=== PATIENT | male | born 1980 | race Caucasian/White ===

== ENCOUNTER 2016-12-09 13:56 | Inpatient (IN) | payer BC ==
[~2016-12-09] VITALS: Ht 167.6 cm; Wt 59.7 kg
[2016-12-09] VITALS (7 sets, daily range): BP systolic 83–107; BP diastolic 44–65
[2016-12-09] MEDS ORDERED: IV NORMAL SALINE 1,000ML 1,000 ML IV SCH ×2 (14:16→15:09)
[2016-12-09] MEDS ORDERED: ACETAMINOPHEN 500 MG TABLET PO ONE (14:17)
[2016-12-09] MEDS ORDERED: NOREPINEPHRINE BITARTRATE 8 MG in IV NORMAL SALINE 250ML 250 ML IV PRN ×3 (14:30→18:45)
[2016-12-09] MEDS ORDERED: 0.9 % SODIUM CHLORIDE 10 ML DISP.SYRIN. IV PRN (14:30)
[2016-12-09 14:48] LABS: BASO % 0 % (0-3); EOS % 0 % (0-3); HEMATOCRIT 39.2 % (39.0-53.0); HEMOGLOBIN 13.5 g/dL (13.0-17.5); LYMPH # 0.7 x10^3/uL (1.0-4.8); LYMPH % 2 % (24-48); MEAN CORPUSCULAR HEMOGLOBIN 34 pg (25-35); MEAN CORPUSCULAR HGB CONC 35 g/dL (31-37); MEAN CORPUSCULAR VOLUME 99 fL (79-100); MONO # 2.1 x10^3/uL (0.0-1.1); MONO % 7 % (0-9); NEUT # 25.9 x10^3uL (1.8-7.7); NEUT % 90 % (31-73); PLATELET COUNT 157 x10^3/uL (140-400); RED BLOOD COUNT 3.97 x10^6/uL (4.30-5.70); RED CELL DISTRIBUTION WIDTH 12.9 % (11.5-14.5); WHITE BLOOD COUNT 28.7 x10^3/uL (4.0-11.0)
[2016-12-09] MEDS ORDERED: NOREPINEPHRINE BITARTRATE 4 MG/4 ML VIAL. IV ONE (14:57)
[2016-12-09] MEDS ORDERED: IV NORMAL SALINE 250ML 0 ML ONE (14:57)
[2016-12-09] MEDS ORDERED: cefTRIAXone SODIUM 1 GM VIAL IV ONE (14:58)
[2016-12-09] MEDS ORDERED: IV NORMAL SALINE 50ML 50 ML ONE ×2 (14:58→16:01)
[2016-12-09 15:02] LABS: ALBUMIN 3.3 g/dL (3.4-5.0); ALBUMIN/GLOBULIN RATIO 0.9 (1.0-1.7); CALCIUM 8.3 mg/dL (8.5-10.1); CREATININE 1.3 mg/dL (0.7-1.3); GFR 62.8; POTASSIUM 3.5 mmol/L (3.5-5.1); TOTAL BILIRUBIN 0.5 mg/dL (0.2-1.0); TOTAL PROTEIN 6.9 g/dL (6.4-8.2)
--- NOTE | 2016-12-09 15:03 | RAD ---
Exam performed: 2 views chest. History: Cough and fever. Date of service: 12/09/16. Comparison: None available Findings: PA and lateral views chest findings: There is a round pleural-based parenchymal opacity in the right lower lobe. The left lung is clear. No pleural effusion or pneumothorax is seen. Impression: Focal parenchymal opacity in the right lower lobe probably represents round pneumonia. Short-term interval follow-up chest x-ray approximately 2 weeks after completion of appropriate therapy may be obtained to evaluate interval resolution. If this density persists, CT chest with contrast may be of additional benefit to rule out remote possibility of underlying mass.
[2016-12-09] MEDS ORDERED: PIP/TAZO PER PHARMACY MC PRN (15:15)
[2016-12-09] MEDS: NORMAL SALINE IV SCH ×8 (15:20→22:20)
--- NOTE | 2016-12-09 15:23 | PHYS DOC ---
General Chief Complaint: FEVER Stated Complaint: fever/aches Time Seen by MD: 14:12 Source: patient Exam Limitations: no limitations Problems: History of Present Illness Initial Comments Pt is 36/M to ED c/o fever and body aches. Pt states for the past two days he's had subjective fever/chills, body aches chills and sweats. No actual chest pain, pt has had some SEQUEIRA. Was seen at Dr Jefferson's office earlier today, but with abnormal VS was sent to ED for further eval. ED VS: 103 F, 142, 20, 86/42, 98% RA Timing/Duration: getting worse (2 days) Severity: severe Modifying Factors: worse with movement, improves with rest Associated Symptoms: cough, diaphoresis, fever/chills, headaches, loss of appetite, malaise, shortness of breath, weakness Allergies: Coded Allergies: hydrocodone (Verified Allergy, Mild, 12/09/16) Upset stomach, takes tylenol at home with no issue Past Medical History Medical History: asthma, seizure Surgical History: noncontributory Social History Smoker: cigarettes Alcohol: none Drugs: none Review of Systems Constitutional: see HPI EENTM: denies eye pain, denies ear pain, nose congestion, throat pain Respiratory: see HPI Cardiovascular: denies chest pain, denies palpitations, denies syncope Gastrointestinal: denies abdominal pain, denies diarrhea, denies nausea, denies vomiting Genitourinary: denies dysuria, denies frequency, denies hematuria Musculoskeletal: see HPI Psychiatric/Neurological: headache, denies numbness, denies paresthesia Physical Exam General Appearance: mild distress, thin Eyes: bilateral eye normal inspection, bilateral eye PERRL, bilateral eye EOMI Ear, Nose, Throat: hearing grossly normal, normal ENT inspection, normal pharynx Neck: non-tender, supple Respiratory: chest non-tender, other (coarse BS R base, no resp distress) Cardiovascular: regular rate, rhythm, no edema, tachycardia Gastrointestinal: normal bowel sounds, non tender, soft Back: no CVA tenderness, no vertebral tenderness Extremities: non-tender, normal inspection Neurologic/Psychiatric: telephonic rn II-XII nml as tested, no motor/sensory deficits, alert, normal mood/affect, oriented x 3 Skin: normal color, warm/dry Orders, Labs, Meds EKG: sinus tachycardia 128 bpm, LV strain no STEMI CXR PA/Lat: RLL "round" pneumonia, RAD uncertain if underlying cause 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 PHYSICIAN: NICOLE ARMAS DO REASON: RLL pneumonia vs mass PROCEDURE: CT ANGIOGRAPHY CHEST Indication pneumonia versus mass right lower lobe. Axial images were obtained. IV contrast was administered. 75 cc of Omnipaque 300 was administered. MIP images were generated and reviewed. Note is made of a plain film examination of the chest earlier in the day. Imaging through the upper abdomen is unremarkable. The thoracic aorta appears unremarkable. There is no significant hilar or mediastinal adenopathy. The study is negative for pulmonary embolus. Parenchymal opacity in the right lower lobe, apparent on plain films, is reproduced on CT. Vessels are noted running through the opacity and the right lower lobe findings are most compatible with pneumonia. There is no indication of a solid mass. Occasional blebs or bulla are noted in both upper lobes. An additional significant parenchymal finding is not seen. IMPRESSION: Negative study for pulmonary embolus. Findings in the right lower lobe compatible with pneumonia. Follow-up plain film imaging, after appropriate treatment, is advised. An unexpected finding in the chest, given the plain film findings, is not seen PQRS Compliance Statement: One or more of the following individualized dose reduction techniques were utilized for this examination: 1. Automated exposure control 2. Adjustment of the mA and/or kV according to patient size 3. Use of iterative reconstruction technique DICTATED AND SIGNED BY: BUSHRA YADAV MD DATE: 12/09/16 1611 CC: PCP,NO; NICOLE ARMAS DO ~ WBC 28.7, lactic acid 3.6, d-dimer 0.30, influenza/strep negative zosyn, rocephin, 2L NS IV, duoneb, tylenol given in ED 1700: Pt discussed with Dr Jefferson who accepts ICU admission for IV antibiotics, IV hydration and correction of acidosis. Pt is agreeable to inpatient treatment. IMPRESSIONS: Sepsis RLL Pneumonia Tobaccoism h/o asthma, seizure Departure Time of Disposition: 17:02 Disposition: ADMITTED INPATIENT Diagnosis: sepsis, pneumonia, tobaccoism, h/o asthma Condition: IMPROVED Additional Instructions: ICU admission Dr Jefferson is accepting. NICOLE ARMAS DO December 09, 2016 15:23
[2016-12-09] MEDS ORDERED: IOHEXOL 300 MG/ML 75 ML VIAL. IV ONE (15:45)
[2016-12-09] MEDS ORDERED: PIPERACILLIN/TAZOBACTAM 4.5 GM in IV NORMAL SALINE 50ML 50 ML IV ONE (15:45)
[2016-12-09] MEDS ORDERED: PIPERACILLIN/TAZOBACTAM 4.5 GM VIAL IV ONE (16:01)
[2016-12-09 16:13] LABS: INFLUENZA A PATIENT NEGATIVE (NEGATIVE); INFLUENZA B PATIENT NEGATIVE (NEGATIVE)
--- NOTE | 2016-12-09 16:23 | RAD ---
Indication pneumonia versus mass right lower lobe. Axial images were obtained. IV contrast was administered. 75 cc of Omnipaque 300 was administered. MIP images were generated and reviewed. Note is made of a plain film examination of the chest earlier in the day. Imaging through the upper abdomen is unremarkable. The thoracic aorta appears unremarkable. There is no significant hilar or mediastinal adenopathy. The study is negative for pulmonary embolus. Parenchymal opacity in the right lower lobe, apparent on plain films, is reproduced on CT. Vessels are noted running through the opacity and the right lower lobe findings are most compatible with pneumonia. There is no indication of a solid mass. Occasional blebs or bulla are noted in both upper lobes. An additional significant parenchymal finding is not seen. IMPRESSION: Negative study for pulmonary embolus. Findings in the right lower lobe compatible with pneumonia. Follow-up plain film imaging, after appropriate treatment, is advised. An unexpected finding in the chest, given the plain film findings, is not seen PQRS Compliance Statement: One or more of the following individualized dose reduction techniques were utilized for this examination: 1. Automated exposure control 2. Adjustment of the mA and/or kV according to patient size 3. Use of iterative reconstruction technique
[2016-12-09] MEDS ORDERED: IPRATRPIUM/ALBUTEROL 0.5/2.5MG 3 ML NEBU. NEB PRN (16:45)
[2016-12-09] MEDS ORDERED: IBUPROFEN 800 MG TABLET. PO ONE (16:49)
[2016-12-09] MEDS: IV NORMAL SALINE 1,000ML 1,000 ML IV SCH ×3 (17:03→20:53)
[2016-12-09] MEDS ORDERED: ACETAMINOPHEN 325 MG TABLET PO PRN (17:15)
[2016-12-09] MEDS ORDERED: ONDANSETRON PF 4 MG/2 ML VIAL. IV PRN (17:15)
[2016-12-09 17:31] LABS: AMPHETAMINE/METHAMPHETAMINE NEG (NEG); BARBITURATES NEG (NEG); BENZODIAZEPINES NEG (NEG); CANNABINOIDS POS (NEG); COCAINE NEG (NEG); METHADONE NEG (NEG); OPIATES NEG (NEG); PHENCYCLIDINE NEG (NEG)
[2016-12-09] MEDS ORDERED: methylPREDNISolone SOD SUCC PF 125 MG/2 ML VIAL. IV SCH (18:00)
[2016-12-09 18:14] LABS: BILIRUBIN,URINE NEG (NEG); CLARITY,URINE CLEAR; COLOR,URINE YELLOW; GLUCOSE,URINE NEG (NEG); UROBILINOGEN,URINE 1 mg/dL (0.2 mg/dL)
[2016-12-09 18:15] LABS: BACTERIA,URINE 0 /HPF (0-FEW); NITRITE,URINE NEG (NEG); WBC,URINE RARE /HPF (0-4)
--- NOTE | 2016-12-09 18:26 | NUR ---
Patient to room ICU 2. Chief complaint is general malaise, cough, and shortness of breath for a few days. Admitted with pneumonia and sepsis. Patient is alert and oriented, pleasant and cooperative. Denies pain at this time. Oriented to room, use of call light, and plan of care. Received verbalization of understanding, denies questions/needs. Will continue to monitor closely.
[2016-12-09] MEDS ORDERED: ALBU1.25 NEB (18:37)
[2016-12-09 19:22] LABS: % BANDS 18 % (0-9); % MONOS 4 % (0-10); % SEGS 78 % (35-66)
[2016-12-09 19:23] LABS: PLT ESTIMATE ADEQUATE (ADEQUATE)
[2016-12-09] MEDS: ENOXAPARIN 40 MG/0.4 ML DISP.SYRIN. SQ SCH (19:39)
[2016-12-09] MEDS: IPRATRPIUM/ALBUTEROL 0.5/2.5MG 3 ML NEBU. NEB SCH (21:07)
--- NOTE | 2016-12-09 21:14 | EKG ---
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
[2016-12-10] VITALS (24 sets, daily range): BP systolic 72–113; BP diastolic 44–67
[2016-12-10] MEDS: methylPREDNISolone SOD SUCC PF 40 MG/ML VIAL. IV SCH ×4 (00:35→18:20)
[2016-12-10] MEDS: IV NORMAL SALINE 1,000ML 1,000 ML IV SCH ×2 (01:38→05:33)
[2016-12-10] MEDS: IPRATRPIUM/ALBUTEROL 0.5/2.5MG 3 ML NEBU. NEB SCH ×4 (04:58→21:35)
[2016-12-10 05:47] LABS: BASO % 0 % (0-3); EOS % 0 % (0-3); HEMATOCRIT 38.3 % (39.0-53.0); HEMOGLOBIN 12.8 g/dL (13.0-17.5); LYMPH # 0.7 x10^3/uL (1.0-4.8); LYMPH % 3 % (24-48); MEAN CORPUSCULAR HEMOGLOBIN 34 pg (25-35); MEAN CORPUSCULAR HGB CONC 33 g/dL (31-37); MEAN CORPUSCULAR VOLUME 103 fL (79-100); MONO # 0.6 x10^3/uL (0.0-1.1); MONO % 3 % (0-9); NEUT # 22.6 x10^3uL (1.8-7.7); NEUT % 95 % (31-73); PLATELET COUNT 132 x10^3/uL (140-400); RED BLOOD COUNT 3.72 x10^6/uL (4.30-5.70); RED CELL DISTRIBUTION WIDTH 13.4 % (11.5-14.5); WHITE BLOOD COUNT 23.9 x10^3/uL (4.0-11.0)
[2016-12-10 05:52] LABS: CALCIUM 7.2 mg/dL (8.5-10.1); CREATININE 1.1 mg/dL (0.7-1.3); GFR 76.2; POTASSIUM 3.5 mmol/L (3.5-5.1)
[2016-12-10] MEDS: POTASSIUM CHLORIDE 30 MEQ in IV 1/2 NORMAL SALINE 1,000 ML IV SCH ×2 (11:10→18:18)
[2016-12-10] MEDS ORDERED: BENZOCAINE/MENTHOL LOZENGE 16'S BOX. PO PRN (11:15)
--- NOTE | 2016-12-10 13:22 | ACF ---
Admission Criteria Forms SEPSIS and OTHER FEBRILE ILLNESS, W/O FOCAL INFECTION Clinical Indications for Admission to Inpatient Care ( Place 'X' for any and all applicable criteria): Admission is indicated for ANY ONE of the following (1)(2)(3)(4): [ ] I. Bacteremia [ ]II. Suspected or identified specific infection requiring hospitalization (eg, meningitis, endocarditis) [ ]III. Hemodynamic instability [ ]IV. Altered mental status [X]V. Failure or unavailability of outpatient antimicrobial treatment [ ]. Hypoxemia [ ]VII. Seizures [ ]VIII. High-risk febrile neutropenia [ ]IX. Need for parenteral antibiotic in patient who is likely to abuse vascular access device (eg, injection drug user) [A](7) [ ]X. Temperature greater than 104.9 degrees F (40.5 degrees C) (oral) [ ]XI. Inpatient admission required rather than observation care because of ANY ONE of the following: [ ]1) Specific infection identified that is too severe for outpatient treatment or observation care trial [ ]2) Metabolic disorder (eg, hypoglycemia, hyperglycemia, metabolic acidosis) that is severe or persistent [ ]3) Temperature greater than 103.1 degrees F (39.5 degrees C) ( oral) that is not responsive to observation care treatment [ ]4) IV fluid to replace significant ongoing (eg, for over 24 hours) losses (> 3 L/m2 per day) [ ]5) Supplemental oxygen or respiratory treatments for over 24 hours that is performable only in acute inpatient setting [ ]6) Parenteral nutrition regimen need that must be implemented on inpatient basis [ ]7) Strict or protective (eg, laminar flow) isolation [ ]8) Other condition, treatment or monitoring requiring inpatient admission Extended stay beyond goal length of stay may be needed for(1)(3) [ ]a) Sepsis or septic shock(22) [ ]b) Positive blood cultures [ ]c) Insufficient oral intake [ ]d) High-risk febrile neutropenia(29)(30) [ ]e) Continued fever and clinical instability [ ]f) Clinically active comorbid illness (e.g,heart failure, renal failure , diabetes) The original [email or web address] content created by Otoniel [employer]ons has been revised. The portions of the content which have been revised are identified through the use of italic text or in bold, and Otoniel Lyons has neither reviewed nor approved the modified material. All other unmodified content is copyright [facility]. Please see references footnoted in the original [facility] edition 2016 Admission Criteria Met?: Yes ALBINO REED December 10, 2016 13:22
[2016-12-10] MEDS: ENOXAPARIN 40 MG/0.4 ML DISP.SYRIN. SQ SCH (20:19)
[2016-12-10] MEDS ORDERED: ZOLPIDEM 5 MG TABLET. PO SCH (21:00)
[2016-12-11] VITALS (16 sets, daily range): BP systolic 88–199; BP diastolic 41–70
[2016-12-11] MEDS: POTASSIUM CHLORIDE 30 MEQ in IV 1/2 NORMAL SALINE 1,000 ML IV SCH ×2 (02:08→08:50)
[2016-12-11] MEDS: methylPREDNISolone SOD SUCC PF 40 MG/ML VIAL. IV SCH ×3 (02:09→20:36)
[2016-12-11] MEDS: IPRATRPIUM/ALBUTEROL 0.5/2.5MG 3 ML NEBU. NEB SCH ×4 (05:58→20:09)
[2016-12-11 06:56] LABS: BASO % 0 % (0-3); EOS % 0 % (0-3); HEMATOCRIT 32.3 % (39.0-53.0); HEMOGLOBIN 11.1 g/dL (13.0-17.5); LYMPH # 0.7 x10^3/uL (1.0-4.8); LYMPH % 3 % (24-48); MEAN CORPUSCULAR HEMOGLOBIN 34 pg (25-35); MEAN CORPUSCULAR HGB CONC 34 g/dL (31-37); MEAN CORPUSCULAR VOLUME 101 fL (79-100); MONO # 1.1 x10^3/uL (0.0-1.1); MONO % 5 % (0-9); NEUT # 19.9 x10^3uL (1.8-7.7); NEUT % 92 % (31-73); PLATELET COUNT 124 x10^3/uL (140-400); RED BLOOD COUNT 3.21 x10^6/uL (4.30-5.70); RED CELL DISTRIBUTION WIDTH 13.1 % (11.5-14.5); WHITE BLOOD COUNT 21.7 x10^3/uL (4.0-11.0)
[2016-12-11 07:30] LABS: CALCIUM 8.2 mg/dL (8.5-10.1); CREATININE 0.6 mg/dL (0.7-1.3); GFR 153.3; POTASSIUM 3.9 mmol/L (3.5-5.1)
[2016-12-11] MEDS ORDERED: diphenhydrAMINE HCL 50 MG CAPSULE PO PRN (08:30)
[2016-12-11] MEDS ORDERED: PNEUMOC CONJ VACC 23-VALENT 0.5 ML VIAL. VAX IM ONE (09:00)
[2016-12-11 11:23] LABS: % BANDS 8 % (0-9); % LYMPHS 5 % (24-48); % METAS 2 % (0-0); % MONOS 1 % (0-10); % SEGS 84 % (35-66); PLATELET CLUMP PRESENT; PLT ESTIMATE DECREASED (ADEQUATE); POLYCHROMASIA SLIGHT; TOXIC GRANULATION SLIGHT
[2016-12-11] MEDS ORDERED: TEMAZEPAM 30 MG CAPSULE PO PRN (11:45)
--- NOTE | 2016-12-11 14:26 | RAD ---
EXAM: CHEST 2 VIEWS History: Shortness of breath Comparison: 12/09/2016 TECHNIQUE: PA and lateral chest radiographs FINDINGS: The cardiomediastinal silhouette is within normal limits. Interval minimal decrease in the airspace opacity identified in the right lung base likely known pneumonia or atelectasis. Impression: Minimal decrease in right lung base airspace opacity likely pneumonia or atelectasis. Follow-up examination is recommended to document complete resolution.
[2016-12-11] MEDS: ENOXAPARIN 40 MG/0.4 ML DISP.SYRIN. SQ SCH (20:36)
--- NOTE | 2016-12-12 01:34 | PN ---
DATE: 12/10/2016 HISTORY OF PRESENT ILLNESS: In with severe sepsis. The patient is still receiving IV fluids. Sodium is up to 148, white count is down from 28,000 to 23,000. He is feeling much better and this speaks more than just the labs themselves. PHYSICAL EXAMINATION: VITAL SIGNS: Blood pressure remains as low as in the 70s systolic, he has got about 110/70, respiratory rate 16, pulse is down from 140, down to 80. He is afebrile presently. GENERAL: The patient is alert and oriented. LUNGS: Decreased breath sounds on the right side. Crackles noted. CARDIOVASCULAR: Tachycardic. ABDOMEN: Soft, nontender, no rebound and no guarding, positive bowel sounds, no hepatosplenomegaly was noted. EXTREMITIES: No clubbing or cyanosis. NEUROLOGIC: The patient is otherwise alert and oriented. Doing extremely well in that regard there. We will go ahead and continue on IV antibiotic therapy. IMPRESSION: Severe sepsis, pneumonia, unspecified etiology; hypernatremia, hypotension, anemia. PLAN: Continue on IV antibiotic therapy, fluids and monitor carefully here in the ICU. VERA STAFFORD MD DR: JOSE/corazon JOB#: [id number] / [id number]
[2016-12-12] MEDS: POTASSIUM CHLORIDE 30 MEQ in IV 1/2 NORMAL SALINE 1,000 ML IV SCH ×2 (05:44→12:14)
[2016-12-12 05:48] VITALS: BP 104/60
[2016-12-12 06:18] LABS: BASO % 0 % (0-3); CALCIUM 8.5 mg/dL (8.5-10.1); CREATININE 0.7 mg/dL (0.7-1.3); EOS % 0 % (0-3); GFR 128.3; HEMATOCRIT 34.5 % (39.0-53.0); HEMOGLOBIN 11.7 g/dL (13.0-17.5); LYMPH # 0.9 x10^3/uL (1.0-4.8); LYMPH % 7 % (24-48); MEAN CORPUSCULAR HEMOGLOBIN 34 pg (25-35); MEAN CORPUSCULAR HGB CONC 34 g/dL (31-37); MEAN CORPUSCULAR VOLUME 100 fL (79-100); MONO # 0.7 x10^3/uL (0.0-1.1); MONO % 5 % (0-9); NEUT # 11.8 x10^3uL (1.8-7.7); NEUT % 88 % (31-73); PLATELET COUNT 157 x10^3/uL (140-400); RED BLOOD COUNT 3.45 x10^6/uL (4.30-5.70); RED CELL DISTRIBUTION WIDTH 13.6 % (11.5-14.5); WHITE BLOOD COUNT 13.4 x10^3/uL (4.0-11.0)
[2016-12-12] MEDS: methylPREDNISolone SOD SUCC PF 40 MG/ML VIAL. IV SCH (07:46)
[2016-12-12 08:00] VITALS: BP 112/63
[2016-12-12] MEDS: IPRATRPIUM/ALBUTEROL 0.5/2.5MG 3 ML NEBU. NEB SCH ×2 (08:00→11:25)
[2016-12-12] MEDS ORDERED: LEVO500T59 PO (11:05)
[2016-12-12] MEDS ORDERED: IPRA3AMP NEB (11:05)
[2016-12-12] MEDS ORDERED: CEFP200T PO (11:05)
[2016-12-12 11:30] VITALS: BP 127/66
--- NOTE | 2016-12-12 15:42 | NUR ---
PT dc to home, pt verbalize understanding of dc instructions and medications. rx called into [facility] pharmacy. They will not have vantin for 2 days ok with MD. PT left amb with family. Mariebl MIRAMONTES
--- NOTE | 2016-12-12 16:58 | CARD ---
APPROVED REPORT EXAM: Two-dimensional and M-mode echocardiogram with Doppler and color Doppler. Other Information Quality : Average Rhythm : NSR INDICATION hypotension, sepsis 2D DIMENSIONS Left Atrium(2D)2.9 (1.6-4.0cm)IVSd0.9 (0.7-1.1cm) Aortic Root(2D)2.3 (2.0-3.7cm)LVDd5.6 (3.9-5.9cm) LVOT Diameter1.8 (1.8-2.4cm)PWd0.9 (0.7-1.1cm) LVDs3.7 (2.5-4.0cm)FS (%) 34.6 % SV97.3 mlLVEF(%)63.1 (>50%) Aortic Valve AoV Peak Melvin.121.5cm/sAoV VTI25.8cm AO Peak GR.5.9mmHgLVOT Peak Melvin.109.2cm/s LVOT VTI 23.77cmAO Mean GR.4mmHg ELIAS (VMAX)2.15yi0DHW (VTI)2.44cm2 Mitral Valve MV E Xrvrmnsi451.3cm/sMV DECEL XRKG847zs MV A Qzpkbvfy99.1cm/sMV KSM54ze E/A Ratio2.2MV A Fvvynhdi802st MVA (PHT)5.22cm2 Tricuspid Valve TR P. Yjwyhuzo346oh/sRAP XQMUKNCM1bhYd TR Peak Gr.17tbYaEVHB19osPz Pulmonary Vein S1 Vgunpkjq97.8cm/sD2 Bzkvgyqk03.9cm/s LEFT VENTRICLE The left ventricle is normal size. There is normal left ventricular wall thickness. Left ventricle sy stolic function is normal. The Ejection Fraction is 60-65%. There is normal LV segmental wall motion. The left ventricular diastolic function and filling is normal for age. There is no ventricular septa l defect visualized. RIGHT VENTRICLE The right ventricle is normal size. The right ventricular systolic function is normal. ATRIA The left atrium size is normal. The right atrium size is normal. The interatrial septum is intact wit h no evidence for an atrial septal defect or patent foramen ovale as noted on 2-D or Doppler imaging. AORTIC VALVE The aortic valve is normal in structure and function. The aortic valve is normal in structure and fun ction. The aortic valve is normal in structure and function. The aortic valve is trileaflet. Doppler and Color Flow revealed no significant aortic regurgitation. There is no significant aortic valvular stenosis. MITRAL VALVE The mitral valve leaflets are thickened. There is no mitral valve stenosis. Doppler and Color Flow re vealed no mitral valve regurgitation noted. TRICUSPID VALVE The tricuspid valve is normal in structure and function. Doppler and Color Flow revealed trace tricus pid regurgitation. The PA pressure was estimated at 16 mmHg. There is no tricuspid valve stenosis. PULMONIC VALVE Doppler and Color Flow revealed no pulmonic valvular regurgitation. There is no pulmonic valvular rachell nosis. GREAT VESSELS The aortic root is normal in size. The IVC is normal in size and collapses <50% with inspiration. PERICARDIAL EFFUSION There is no evidence of significant pericardial effusion. Critical Notification Critical Value: No <Conclusion> Left ventricle systolic function is normal. The Ejection Fraction is 60-65%. There is normal LV segmental wall motion. The IVC is normal in size and collapses <50% with inspiration.
== END 2016-12-12 15:45 | disposition home or self-care (01) | DRG 871 ==
LOC: ER 13:56 → ICU 17:07
PROVIDERS: ADMIT Family Medicine; ATTEND Family Medicine
DX: A41.9 Sepsis, unspecified organism (principal); J18.9 Pneumonia, unspecified organism; E87.0 Hyperosmolality and hypernatremia; D64.9 Anemia, unspecified; F17.210 Nicotine dependence, cigarettes, uncomplicated; J45.909 Unspecified asthma, uncomplicated; R65.20 Severe sepsis without septic shock; R56.9 Unspecified convulsions; Z88.5 Allergy status to narcotic agent
CPT/HCPCS: 36415; 71020; 71275; 80048; 80053; 81001; 82550; 83605; 84484; 85007; 85027; 85379; 86738; 87040; 87070; 87205; 87449; 87641; 87804; 87880; 90732; 93005; 93306; 94640; 96361; 96365; 96368; G0480; G0481; J0696; J1650; J1956; J2543; J2920; J2930; J7030; J7620; Q9967; 99285-25

== ENCOUNTER 2017-10-03 18:23 | Emergency (ER) | payer BC, OTHER ==
[~2017-10-03] VITALS: Ht 175.3 cm; Wt 65.8 kg
[~2017-10-03 18:23] MED LIST: ALBU1.25 NEB; CEFP200T PO; IPRA3AMP NEB; LEVO500T59 PO
--- NOTE | 2017-10-03 18:31 | ED.ADGEN ---
Past History Past Medical History: Asthma, Seizure Past Surgical History: Tonsillectomy Alcohol Use: None Drug Use: None Adult General Chief Complaint Chief Complaint ".. I got this rash.. I think it is a new body wash..." HPI HPI Patient is a 30 year old male who presents with above hx and complaints of a rash. Pt. has what appears to have a contact dermatitis over his body. Increased erythema at axillary and groin. Pt. denies any history of immunosuppression, travel, ill contacts. Has recently used a new body wash. Patient noticed shortly after using he developed a rash. Review of Systems Review of Systems Constitutional: Denies fever or chills [] Eyes: Denies change in visual acuity, redness, or eye pain [] HENT: Denies nasal congestion or sore throat [] Respiratory: Denies cough or shortness of breath [] Cardiovascular: No additional information not addressed in HPI [] GI: Denies abdominal pain, nausea, vomiting, bloody stools or diarrhea [] : Denies dysuria or hematuria [] Musculoskeletal: Denies back pain or joint pain [] Integument: Patient complains of rash Neurologic: Denies headache, focal weakness or sensory changes [] Endocrine: Denies polyuria or polydipsia [] All other systems were reviewed and found to be within normal limits, except as documented in this note. Family History Family History Noncontributory to presentation Current Medications Current Medications Current Medications Medications (Trade) Dose Ordered Sig/Tabatha Start Time Stop Time Status Last Admin Dose Admin Albuterol Sulfate (Ventolin Hfa) 2 puff 1X ONCE 10/03/17 19:00 10/03/17 19:01 DC 10/03/17 19:10 2 PUFF Famotidine (Pepcid) 20 mg 1X ONCE 10/03/17 19:00 10/03/17 19:01 DC 10/03/17 19:09 20 MG Methylprednisolone Acetate (DEPO-Medrol IM) 40 mg 1X ONCE 10/03/17 19:00 10/03/17 19:01 DC 10/03/17 19:11 40 MG He nursing for home meds Allergies Allergies Allergies Coded Allergies Type Severity Reaction Last Updated Verified ciprofloxacin Allergy Unknown Rash 10/03/17 Yes Physical Exam Physical Exam Constitutional: Moderately acute distress, non-toxic appearance. [] HENT: Normocephalic, atraumatic, bilateral external ears normal, oropharynx moist, no oral exudates, nose normal. [] Eyes: PERRLA, EOMI, conjunctiva normal, no discharge. [] Neck: Normal range of motion, no tenderness, supple, no stridor. [] Cardiovascular: Tachycardia Heart rate regular rhythm, no murmur [] Lungs & Thorax: Bilateral breath sounds equal at apexes with scattered wheezes auscultation [] Abdomen: Bowel sounds normal, soft, no tenderness, no masses, no pulsatile masses. [] Skin: Warm, dry, no erythema, contact dermatitis type rash. [] Back: No tenderness, no CVA tenderness. [] Extremities: No tenderness, no cyanosis, no clubbing, ROM intact, no edema. [] Neurologic: Alert and oriented X 3, normal motor function, normal sensory function, no focal deficits noted. [] Psychologic: Affect normal, judgement normal, mood normal. [] Current Patient Data Vital Signs Vital Signs Date Time Temp Pulse Resp B/P (MAP) Pulse Ox O2 Delivery O2 Flow Rate FiO2 10/03/17 19:19 103 16 121/85 (97) 100 Room Air 10/03/17 18:43 98.5 EKG EKG [] Radiology/Procedures Radiology/Procedures [] Course & Med Decision Making Course & Med Decision Making Pertinent Labs and Imaging studies reviewed. (See chart for details). Use a and D ointment to areas of dry skin 4 times a day. Take prednisone 50 mg a day. Take Benadryl 50 mg 4 times a day for itching. Use MDI 2 puffs 4 times a day. Avoid further use of body wash. Attempt to identify cause of the rash. Follow-up primary care [] Final Impression Final Impression 1. Rash[]- Contact Dermatitis Problems: Dragon Disclaimer Dragon Disclaimer This electronic medical record was generated, in whole or in part, using a voice recognition dictation system. CHIARA RIZVI MD Oct 03, 2017 18:31
[2017-10-03] MEDS ORDERED: DIPH25CA58 PO (18:56)
[2017-10-03] MEDS ORDERED: RANI150T6 PO (18:56)
[2017-10-03] MEDS ORDERED: PRED50TA PO (18:56)
[2017-10-03] MEDS ORDERED: FAMOTIDINE 20 MG TABLET PO ONE (19:00)
[2017-10-03] MEDS ORDERED: methylPREDNISolone ACETATE 40 MG/ML VIAL. IM ONE (19:00)
[2017-10-03] MEDS ORDERED: ALBUTEROL SULFATE 8GM INHALER. INH ONE (19:00)
[2017-10-03 19:19] VITALS: BP 121/85
== END 2017-10-03 19:20 | disposition home or self-care (01) ==
LOC: ER 18:23
DX: L25.9 Unspecified contact dermatitis, unspecified cause (principal); J45.909 Unspecified asthma, uncomplicated; Z88.1 Allergy status to other antibiotic agents
CPT/HCPCS: 94640; 96372; 99283; J1030; J7613